=== PATIENT | female | born 1995 | race Caucasian/White ===

== ENCOUNTER 2021-08-27 04:32 | Outpatient (CLI) | payer OTHER, SELFPAY ==
[2021-08-27 06:12] LABS: HIV 1/2 Ab P24 Ag Result Negative (Negative)
[2021-08-27 07:14] LABS: Hepatitis B Surface Antigen Negative (Negative); Hepatitis C Virus Antibody Negative (Negative)
[2021-08-28 13:36] LABS: Hepatitis B Surface Antibody > 1000.00 s/c
[2021-08-28 13:44] LABS: Hepatitis B Surface Anti Res Positive
== END 2021-08-27 04:33 | disposition home or self-care (01) ==
PROVIDERS: PCP Nurse Practitioner
DX: T14.8XXA Other injury of unspecified body region, initial encounter (principal)
CPT/HCPCS: 36415; 86703; 86706; 86803; 87340; G0432

== ENCOUNTER 2024-07-14 10:32 | Outpatient (CLI) | payer OTHER, SELFPAY ==
--- NOTE | ~2024-07-14 | US_ITS ---
Neck ULTRASOUND Ordering provider: Gopal Goldsmith DO History: . R59.0 - Localized enlarged lymph nodes . Comparison: None. FINDINGS/impression: Hypoechoic nodule in the left side of the neck measuring 1.3 x 1 x 0.4 cm most likely lymph node. Com plex cyst is possible. Further evaluation advised. Reviewed, dictated and finalized at location A. SHED CLOTH EXAMINER
[2024-07-14 11:30] LABS: Basophils Absolute Auto 0.03 K/mm3 (0.00-0.10); Basophils Percent Auto 0.3 % (0.0-1.0); Eosinophils Absolute Auto 0.12 K/mm3 (0.02-0.50); Eosinophils Percent Auto 1.3 % (1.0-6.0); Hematocrit 34.6 % (35.0-49.0); Hemoglobin 11.7 g/dL (12.0-15.0); Immature Granulocyte Absolute 0.03 K/mm3 (0.00-0.00); Immature Granulocyte Percent A 0.3 % (0.0-0.0); Lymphocytes Absolute Auto 2.01 K/mm3 (1.10-4.50); Lymphocytes Percent Auto 21.6 % (18.0-42.0); Mean Corpuscular HGB Conc 33.8 g/dL (32-36); Mean Corpuscular Hemoglobin 32.4 pg (27.0-31.0); Mean Corpuscular Volume 95.8 fL (78.0-102.0); Mean Platelet Volume 9.2 fl (9.2-11.8); Monocytes Absolute Auto 0.73 K/mm3 (0.10-0.90); Monocytes Percent Auto 7.8 % (2.0-11.0); Neutrophils Absolute Auto 6.39 K/mm3 (1.70-7.20); Neutrophils Percent Auto 68.7 % (50.0-70.0); Platelet Count Result 308 K/mm3 (150-420); Red Blood Count 3.61 M/mm3 (4.20-5.40); Red Cell Distribution Width 12.3 % (11.6-14.4); White Blood Count 9.3 K/mm3 (4.8-10.8)
[2024-07-14 12:50] LABS: Alanine Aminotransferase 51 U/L (14-59); Albumin Level 3.9 g/dL (3.4-5.0); Alkaline Phosphatase 72 U/L (46-116); Anion Gap 9 mmol/L (4-12); Aspartate Amino Transferase 18 U/L (15-37); Bilirubin,Total 0.3 mg/dL (0.00-1.00); Blood Urea Nitrogen 12 mg/dL (7-18); Calcium 9.4 mg/dL (8.5-10.1); Carbon Dioxide 27 mmol/L (21-32); Chloride 104 mmol/L (98-108); Cholesterol 177 mg/dL (0-200); Estimated Glomerular Filt Rate > 60; Glucose 92 mg/dL (70-99); HDL Direct 43 mg/dL (40-60); LDL Cholesterol Calculated 112 mg/dL (<130); Osmolality Calculated 289 mOsm/kg (285-295); Potassium 4.6 mmol/L (3.5-5.1); Sodium 140 mmol/L (136-145); Thyroid Stimulating Hormone Reflex 1.08 u/IU/mL (0.36-3.74); Total Protein 7.3 g/dL (6.4-8.2); Triglycerides 110 mg/dL (0-150)
== END 2024-07-14 10:33 | disposition home or self-care (01) ==
LOC: CHSIMG 10:33
PROVIDERS: PCP Family Medicine; Visit Provider Family Medicine
DX: Z00.00 Encounter for general adult medical examination without abnormal findings (principal); E03.9 Hypothyroidism, unspecified; R59.0 Localized enlarged lymph nodes; I47.10 Supraventricular tachycardia, unspecified
CPT/HCPCS: 36415; 76536; 80053; 80061; 84443; 85025; 93246

== ENCOUNTER 2024-07-21 08:35 | Outpatient (CLI) | payer OTHER, SELFPAY ==
--- NOTE | ~2024-07-21 | CT_ITS ---
CT soft tissue neck w con Ordering provider: Gopal Goldsmith DO History: 29 years Female with . US 07/14/24, enlarged lymph node - LT side . Comparison: None. Technique: CT soft tissues neck was performed with contrast. . Automated exposure control and iterat sammi reconstruction technique were employed. The dose-length product was 381.47 mGy-cm. 75 mL Omnipaqu e 350 was given IV. Findings: LOWER HEAD: The visualized brain parenchyma, optic globes/orbits and mastoids are normal. The visua lized paranasal sinuses are well aerated. Right maxillary sinus disease. SALIVARY GLANDS: Slightly enlarged submandibular glands measuring 2.4 x 2.4 cm on the right and 2.1 x 2.5 cm in the left. Sialoadenitis is possible. THYROID: Normal. SUPRAHYOID DEEP SPACES: Lymph nodes are seen in the parapharyngeal spaces with the largest on the lef t side measures 0.9 cm. left posterior triangle lymph node is seen which measures 1.5 cm. Posterior triangle lymph nodes are seen in the right measuring 7.7 mm.. The largest lymph node and the right parapharyngeal space measures 0.8 cm. Lymph node is seen posterior to the left submandibular gland measuring 1 cm. CAROTID ARTERIES: Normal. JUGULAR VEINS: Normal. TONSILS: Normal. ORAL CAVITY: normal as visualized. PHARYNX, LARYNX AND TRACHEA: Patent and normal. No prevertebral soft tissue swelling. SUPERFICIAL SOFT TISSUES: Normal. No lymphadenopathy or neck mass. THORACIC INLET/VISUALIZED UPPER CHEST: Normal. SKELETAL: Normal. IMPRESSION: 1. Slightly enlarged submandibular glands. Clinical correlation advised. 2. Borderline lymph nodes seen in the parapharyngeal and posterior triangle areas. 3. Maxillary sinus disease. Reviewed, dictated and finalized at location A. ER BLENDER AND POURER IMPRESSION: 1. Slightly enlarged submandibular glands. Clinical correlation advised. 2. Borderline lymph nodes seen in the parapharyngeal and posterior triangle ar eas. 3. Maxillary sinus disease.
== END 2024-07-21 08:36 | disposition home or self-care (01) ==
PROVIDERS: PCP Family Medicine; Visit Provider Family Medicine
DX: R22.1 Localized swelling, mass and lump, neck (principal)
CPT/HCPCS: 70491; Q9967

== ENCOUNTER 2024-07-30 23:05 | Emergency (ER) | payer OTHER, SELFPAY ==
--- NOTE | ~2024-07-30 | XR_ITS ---
EXAMINATION: XR chest 1V portable Exam Date/Time: 07/30/2024 23:50 FLIGHT OPERATIONS ENGINEER HISTORY: fever, rash Comparison: 04/02/2018. RESULT: Lines, tubes, and devices: None. Lungs and pleura: Clear. Cardiomediastinal silhouette: Stable. Other: No acute osseous or upper abdominal finding. IMPRESSION: No acute cardiopulmonary process. Reviewed, dictated and finalized at location K. HT OPERATIONS ENGINEER
[2024-07-30 23:11] VITALS: BP 116/88; PULSE 126; RESP 14; TEMP 37.3; O2SAT 99
--- NOTE | 2024-07-30 23:17 | ECG_ITS ---
Test Date: 2024-07-30 23:23:15 Measurements Intervals [place] Rate: 134 P: 65 NE: 158 QRS: 56 QRSD: 86 T: 59 QT: 331 QTc: 495 Interpretive Statements SINUS TACHYCARDIA NONSPECIFIC T-WAVE ABNORMALITY ABNORMAL ECG Electronically Signed On 07-31-2024 17:15:27 COATING LINE WORKER by Karri Cooney M.D.
[2024-07-30] MEDS: SODIUM CHLORIDE 0.9% IV 1,000 ML 999 ML IV CONT (23:51)
[2024-07-30] MEDS: FAMOTIDINE 20 MG/2 ML VIAL IV PUSH (23:52)
[2024-07-30] MEDS: methylPREDNISolone SOD SUCC 125 MG VIAL IV PUSH (23:52)
[2024-07-30] MEDS: diphenhydrAMINE HCl INJ 50 MG/ML VIAL 25 MG IV PUSH (23:53)
[2024-07-30 23:54] LABS: Basophils Percent Auto 0.2 % (0.2-1.2); Eosinophils Absolute Auto 0.1 K/mm3 (0-0.3); Eosinophils Percent Auto 1.4 % (0-4.4); Hematocrit 36.7 % (37.0-47.0); Hemoglobin 12.4 g/dL (12.0-15.0); Immature Granulocyte Absolute 0.01 K/mm3 (0.00-0.031); Immature Granulocyte Percent A 0.2 % (0-0.5); Lymphocytes Absolute Auto 0.61 K/mm3 (0.9-3.2); Mean Corpuscular HGB Conc 33.8 g/dl (32-36); Mean Corpuscular Volume 94.8 fl (80-100); Mean Platelet Volume 9.3 fl (7.4-10.4); Monocytes Absolute Auto 0.3 K/mm3 (0.1-0.6); Neutrophils Absolute Auto 3.4 K/mm3 (1.3-6.7); Neutrophils Percent Auto 78.2 % (45.5-73.1); Platelet Count Result 204 k/mm3 (150-375); Red Blood Count 3.87 M/mm3 (4.2-5.4); Red Cell Distribution Width 12.1 % (11.5-14.5); White Blood Count 4.4 K/mm3 (4.5-10.0)
[2024-07-30 23:58] LABS: Add Urine Microscopic? YES; Appearance Urine Clear (Clear); Bacteria Urine None Seen /hpf; Bilirubin Urine Negative (Negative); Blood Urine 1+ (Negative); Color Urine Yellow (Yellow); Glucose Urine UA Negative (Negative); Ketones Urine Negative (Negative); Leukocyte Esterase Ur Negative LEU/UL (Negative); Nitrate Urine Negative (Negative); Non Pathogenic Casts 0-2; Protein Urine Negative (Negative); Specific Grav Ur 1.012 (1.001-1.035); Squamous Epithelial Cell Urine None Seen /hpf (Few); Urobilinogen Urine 0.2 mg/dL (<2.0); WBC Urine 0-5 /hpf (0-3); pH Urine 6.5 (5.0-9.0)
[2024-07-31 00:05] LABS: Lactic Acid Reflex 0.8 mmol/L (0.7-2.0)
[2024-07-31 00:07] LABS: Alanine Aminotransferase 29 U/L (6-35); Albumin Level 4.6 g/dL (3.5-5.1); Alkaline Phosphatase 87 U/L (38-126); Anion Gap 6 mmol/L (4-12); Aspartate Amino Transferase 35 U/L (14-36); Bilirubin,Total 0.4 mg/dL (0.2-1.3); Blood Urea Nitrogen 12 mg/dL (7-17); Calcium 9.5 mg/dL (8.4-10.2); Carbon Dioxide 23 mmol/L (22-30); Chloride 106 mmol/L (98-107); Estimated CRCL calculation 89 ml/min; Estimated Glomerular Filt Rate > 60; Glucose 106 mg/dL (65-110); Potassium 3.9 mmol/L (3.4-5.0); Sodium 135 mmol/L (137-145)
[2024-07-31 00:36] LABS: Influenza A QL RT-PCR Negative (Negative); Influenza B QL RT-PCR Negative (Negative); RSV RNA, RT-PCR Negative (Negative); SARS-CoV-2 RNA PCR Negative (Negative)
[2024-07-31 00:53] VITALS: BP 114/69; PULSE 100; RESP 16; TEMP 37.2; O2SAT 99
--- NOTE | 2024-07-31 01:37 | ED_ITS ---
HPI - General Adult General Chief complaint: Skin/Abscess/Foreign Body Stated complaint: Rash, fever, elevated heart rate Time Seen by Provider: 07/30/24 23:18 History of Present Illness HPI narrative: Patient 29-year-old female presents emergency department with chief complaint of rash. Patient reports that she has history of AV jake reentry tachycardia reports that she has had a fever at home and started developing a rash over her entire body the patient reports that it is blanching reports that it is non itchy the patient reports that she has currently on her 8th day of Bactrim for post exposure prophylaxis to pertusses. Patient reports that she has not had prior reactions to sulfa for the past they had attempted to avoid macrolides as the patient's dysrhythmia history. Related Data Home Medications ?Medication ?Instructions ?Recorded ?Confirmed ?Last Taken ?Type multivitamin 1 tablet PO DAILY 07/09/24 07/09/24 Unknown History omega 3-sdq-dmv-fish oil 60 mg-90 1 cap PO DAILY 07/09/24 07/09/24 Unknown History mg-500 mg capsule (Fish Oil) rimegepant 75 mg disintegrating 75 mg PO ONCE PRN 07/09/24 07/09/24 Unknown History tablet (Nurtec ODT) Allergies Allergy/AdvReac Type Severity Reaction Status Date / Time sulfamethoxazole (From Allergy Intermediate Rash Verified 07/31/24 01:29 Bactrim) trimethoprim (From Bactrim) Allergy Intermediate Rash Verified 07/31/24 01:29 Review of Systems 2 Review of Systems: A 10 system review of systems was completed on the patient and is negative except for what is stated in the HPI. Nursing and ancillary documentation was reviewed. [facility] Past Medical History Medical History (Updated 07/31/24 @ 01:42 by Sedrick Tellez MD) Anxiety disorder, unspecified Depression Migraine with aura, not intractable, without status migrainosus Social History Social History Smoking status: Never smoker Alcohol intake: never Substance use: never Do You Feel Safe in your Home?: Yes Lack of Transportation: No Exam 2 Narrative: GENERAL: Well-appearing, well-nourished, and in no acute distress. HEAD: Normocephalic, atraumatic. EYES: PERRLA and EOMI. ENT: Nares clear, no rhinorrhea or epistaxis. Mucous membranes moist. NECK: Supple. CHEST: Clear to auscultation. No respiratory distress. HEART: Regular rate and rhythm. No murmur heard. Normal peripheral pulses. ABDOMEN: Soft, nontender, nondistended, normal active bowel sounds. EXTREMITIES: Normal range of motion. No edema. SKIN: Warm, dry, non raised blanching rash no mucosal involvement no vesicular lesions. NEURO: No focal deficits. Alert and oriented x3. PSYCH: Normal mood and affect. Course Vital Signs Vital signs: Vital Signs Temperature 37.3 C 07/30/24 23:11 Pulse Rate 126 H 07/30/24 23:11 Respiratory Rate 14 07/30/24 23:11 Blood Pressure 116/88 07/30/24 23:11 Pulse Oximetry 99 07/30/24 23:11 Temperature 37.2 C 07/31/24 00:53 Pulse Rate 100 07/31/24 00:53 Respiratory Rate 16 07/31/24 00:53 Blood Pressure 114/69 07/31/24 00:53 Pulse Oximetry 99 07/31/24 00:53 Medical Decision Making [facility] Narrative Medical decision making narrative: Differential diagnosis includes drug reaction, Hughes-Matthew, toxic epidermal necrolysis Laboratory studies were obtained on the patient showed normal CBC with a white count of 4.4 electrolytes showed normal renal function with a creatinine of 0.6 and a BUN of 12 lactic acid was normal urinalysis showed no evidence UTI COVID flu and RSV were negative Chest x-ray showed no focal infiltrate Patient was given steroids Benadryl and Pepcid and is feeling better at this time. The patient will be continued on a pulse of steroids and also was instructed to use Benadryl and Pepcid on an as-needed basis. Given the patient has completed 8 days of the Bactrim the Bactrim will be discontinued and the patient should follow up with him fully health. Vital Signs Vital Signs: Vital Signs Temperature 37.3 C 07/30/24 23:11 Pulse Rate 126 H 07/30/24 23:11 Respiratory Rate 14 07/30/24 23:11 Blood Pressure 116/88 07/30/24 23:11 Pulse Oximetry 99 07/30/24 23:11 Temperature 37.2 C 12/27/24 00:53 Pulse Rate 100 07/31/24 00:53 Respiratory Rate 16 07/31/24 00:53 Blood Pressure 114/69 07/31/24 00:53 Pulse Oximetry 99 07/31/24 00:53 Lab Data 07/30/24 23:44 07/30/24 23:44 Labs: Lab Results 07/30/24 07/30/24 Range/Units 23:44 23:45 WBC 4.4 L (4.5-10.0) K/mm3 RBC 3.87 L (4.2-5.4) M/mm3 Hgb 12.4 (12.0-15.0) g/dL Hct 36.7 L (37.0-47.0) % MCV 94.8 (80-100) fl MCH 32.0 (26-34) pg MCHC 33.8 (32-36) g/dl RDW 12.1 (11.5-14.5) % Plt Count 204 (150-375) k/mm3 MPV 9.3 (7.4-10.4) fl Immature Gran % (Auto) 0.2 (0-0.5) % Neut % (Auto) 78.2 H (45.5-73.1) % Lymph % (Auto) 14.0 L (18.3-44.2) % [place] % (Auto) 6.0 (2.6-8.5) % Eos % (Auto) 1.4 (0-4.4) % Baso % (Auto) 0.2 (0.2-1.2) % Lymph # (Auto) 0.61 L (0.9-3.2) K/mm3 [place] # (Auto) 0.3 (0.1-0.6) K/mm3 Eos # (Auto) 0.1 (0-0.3) K/mm3 Baso # (Auto) 0.0 (0.0-0.1) K/mm3 Abs Immat Gran (auto) 0.01 (0.00-0.031) K/mm3 Absolute Neuts (auto) 3.4 (1.3-6.7) K/mm3 Absolute Nucleated RBC 0.000 (0.0-0.012) K/mm3 Nucleated RBC % 0.0 (0.0-0.2) % Sodium 135 L (137-145) mmol/L Potassium 3.9 (3.4-5.0) mmol/L Chloride 106 (98-107) mmol/L Carbon Dioxide 23 (22-30) mmol/L Anion Gap 6 (4-12) mmol/L BUN 12 (7-17) mg/dL Creatinine 0.60 L (0.7-1.0) mg/dL Estim Creat Clear Calc 89 ml/min Estimated GFR > 60 (59 - ) Glucose 106 (65-110) mg/dL Lactic Acid 0.8 (0.7-2.0) mmol/L Calcium 9.5 (8.4-10.2) mg/dL Total Bilirubin 0.4 (0.2-1.3) mg/dL AST 35 (14-36) U/L ALT 29 (6-35) U/L Alkaline Phosphatase 87 (38-126) U/L Total Protein 8.0 (6.3-8.2) g/dL Albumin 4.6 (3.5-5.1) g/dL Urine Color Yellow (Yellow) Urine Appearance Clear (Clear) Urine pH 6.5 (5.0-9.0) Ur Specific [place] 1.012 (1.001-1.035) Urine Protein Negative (Negative) mg/dL Urine Glucose (UA) Negative (Negative) mg/dL Urine Ketones Negative (Negative) mg/dL Ur Blood (Man) 1+ H (Negative) Urine Nitrate Negative (Negative) Urine Bilirubin Negative (Negative) Urine Urobilinogen 0.2 (<2.0) mg/dL Leukocyte Esterase Rfl Negative (Negative) DONNELL/UL Urine RBC 6-10 H (0-2) /hpf Urine WBC 0-5 (0-3) /hpf Ur Squamous Epith Cells None seen (Few) /hpf Urine Bacteria None seen /hpf Urine Casts 0-2 Influenza A (RT-PCR) Negative (Negative) Influenza B (RT-PCR) Negative (Negative) RSV (RT-PCR) Negative (Negative) SARS-CoV-2 RNA (RT-PCR) Negative (Negative) Discharge Plan Discharge Clinical Impression: Allergic reaction Patient Disposition: Home, Self-Care Condition: Stable Instructions: Antibiotic Form, Antibiotic Medication Allergy (ED) Patient Language: Spanish Prescriptions: New prednisone 20 mg tablet 40 mg PO DAILY 5 Days Qty: 10 0RF No Action omega 6-zia-qgk-fish oil [Fish Oil] 60-90-500 mg capsule 1 cap PO DAILY multivitamin Tablet 1 tablet PO DAILY Nurtec ODT 75 mg tablet,disintegrating 75 mg PO ONCE PRN Rx Instructions: as a single dose triamcinolone acetonide 0.5 % cream 1 applic topical BID Qty: 15 0RF Follow-up/Referrals: Gopal Goldsmith DO [Primary Care Provider] - Time of Disposition: 01:43
== END 2024-07-31 01:48 | disposition home or self-care (01) ==
PROVIDERS: Emergency Provider Emergency Medicine; PCP Family Medicine
DX: T78.40XA Allergy, unspecified, initial encounter (principal); F41.9 Anxiety disorder, unspecified; F32.A Depression, unspecified; Z20.822 Contact with and (suspected) exposure to COVID-19
CPT/HCPCS: 36415; 71045; 80053; 81001; 83605; 85025; 87637; 93005; 96361; 96374; 96375; 99284; J1200; J2919; J7030

== ENCOUNTER 2025-06-12 07:32 | Outpatient (CLI) | payer OTHER, SELFPAY ==
--- NOTE | 2025-06-12 07:50 | PC.NURSE ---
Pt arrived with c/o having noticed a small trickle of fluid across her thigh around 0315 while at work last night. Also, has felt a decrease in movement. Pt also states she has felt some lower abdominal cramping last night 1-2 times per hour.
[2025-06-12 07:58] VITALS: BP 105/62; PULSE 86
[2025-06-12 08:00] VITALS: BP 104/69; PULSE 91; RESP 16; TEMP 36.7
--- NOTE | 2025-06-12 08:01 | PM.OBTRLD ---
OB - Triage/Final Diagnosis Visit Information Date of evaluation: 06/12/25 Reason for evaluation: threatened labor Comments/Additional reasons for admission: I have assessed the risk for this patient, Sadia Henry, and determined that she would benefit from observation care. Evaluation Vital signs: Vital Signs - 24 hr 06/12/25 07:58 06/12/25 08:00 Pulse Rate 86 91 Blood Pressure 105/62 104/69
[2025-06-12 08:17] VITALS: BP 104/69; PULSE 91
--- NOTE | 2025-06-12 08:18 | PC.NURSE ---
Dr. Melba Hernadez on unit and informed of pt's c/o possible leakage of fluid, decreased movement and 1-2 cxns/hr while at work last night. Pt states she had 2 eight oz glasses of water at the most while she was working last night. ROM plus was negative, reviewed monitor tracing with 10 beat accels and 1 variable decel down to 115. Pt denies feeling any abdominal pain / cramping since being here. OK to discharge to home.
[2025-06-12 09:01] LABS: OBXCEM ROM Plus Negative (Negative)
== END 2025-06-12 08:25 | disposition home or self-care (01) ==
LOC: ANHOBOP 07:39 → ANHOBPP 07:40
PROVIDERS: PCP Family Medicine; Visit Provider Obstetrics & Gynecology
DX: O42.90 Premature rupture of membranes, unspecified as to length of time between rupture and onset of labor, unspecified weeks of gestation (principal); Z3A.00 Weeks of gestation of pregnancy not specified
CPT/HCPCS: 59025; 84112; 99199

== ENCOUNTER 2025-06-15 09:12 | Outpatient (CLI) | payer OTHER, SELFPAY ==
[2025-06-15 09:31] LABS: Add Urine Microscopic? YES; Appearance Urine Clear (Clear); Glucose Urine UA Negative (Negative); Leukocyte Esterase Ur Trace (Negative); Nitrate Urine Negative (Negative); Specific Grav Ur >= 1.030 (1.010-1.020)
[2025-06-15 09:32] LABS: Hematocrit 31.4 % (35.0-49.0); Hemoglobin 10.5 g/dL (12.0-15.0); Immature Granulocyte Percent A 1.0 % (0.0-0.0); Lymphocytes Absolute Auto 1.96 K/mm3 (1.10-4.50); Mean Corpuscular HGB Conc 33.4 g/dL (32-36); Mean Corpuscular Hemoglobin 33.0 pg (27.0-31.0); Mean Corpuscular Volume 98.7 fL (78.0-102.0); Nucleated Red Blood Cells Absolute Auto 0.00 K/mm3 (0.00-0.00); Nucleated Red Blood Cells Perc 0.0 % (0-0.0); Platelet Count Result 314 K/mm3 (150-420); Red Blood Count 3.18 M/mm3 (4.20-5.40); White Blood Count 8.9 K/mm3 (4.8-10.8)
[2025-06-15 10:14] LABS: Alanine Aminotransferase 48 U/L (6-35); Albumin Level 3.9 g/dL (3.5-5.1); Alkaline Phosphatase 75 U/L (38-126); Anion Gap 9 mmol/L (4-12); Aspartate Amino Transferase 39 U/L (14-36); Bilirubin,Total 1.2 mg/dL (0.2-1.3); Blood Urea Nitrogen 6 mg/dL (7-17); Calcium 9.2 mg/dL (8.4-10.2); Carbon Dioxide 20 mmol/L (22-30); Chloride 109 mmol/L (98-107); Estimated Glomerular Filt Rate > 60; Glucose 136 mg/dL (65-110); Osmolality Calculated 285 mOsm/kg (285-295); Potassium 3.9 mmol/L (3.4-5.0); Sodium 138 mmol/L (137-145); Total Protein 6.7 g/dL (6.3-8.2)
[2025-06-15 10:46] LABS: Thyroid Stimulating Hormone Reflex 0.804 uIU/mL (0.465-4.68)
[2025-06-15 11:21] LABS: Vitamin B12 520.0 pg/mL (239-931)
[2025-06-15 16:13] LABS: Ferritin 10.10 ng/mL (6.24-137)
[2025-06-15 16:32] LABS: Iron 128 ug/dL (37-170)
[2025-06-15 16:41] LABS: Percent Iron Saturation 28 % (20-50)
[2025-06-16 09:37] LABS: Hepatitis B Surface Antigen Negative (Negative)
[2025-06-16 09:44] LABS: HAV RESULT Negative (Negative); Hepatitis B Core IgM Result Negative (Negative)
== END 2025-06-15 09:13 | disposition home or self-care (01) ==
LOC: CHSLAB 09:12
PROVIDERS: PCP Family Medicine; Visit Provider Family Medicine
DX: I47.19 Other supraventricular tachycardia (principal); E53.8 Deficiency of other specified B group vitamins; E03.9 Hypothyroidism, unspecified; R74.01 Elevation of levels of liver transaminase levels; D50.9 Iron deficiency anemia, unspecified; D64.9 Anemia, unspecified
CPT/HCPCS: 36415; 80053; 80074; 81001; 82607; 82728; 82746; 83540; 83550; 84443; 85025

== ENCOUNTER 2025-06-23 08:39 | Outpatient (CLI) | payer OTHER, SELFPAY ==
--- NOTE | ~2025-06-23 | US_ITS ---
EXAMINATION: US abdomen limited DATE: 06/23/2025 09:01 INDICATION: Abnormal test TECHNIQUE: Multiple grayscale and Doppler ultrasound images of the liver were obtained. COMPARISON: None FINDINGS: Visualized portions of liver appear normal. Vascular structures appear patent. The gallbladder appears normal no gross gallbladder wall thickening, pericholecystic fluid or gallstones. Common bile duct: 3.7 mm. Hepatopedal portal venous flow noted. No free fluid seen. IMPRESSION: Directed examination of the liver with no gross abnormality identified. No cholelithiasis or gross sonographic evidence of acute cholecystitis. Reviewed, dictated and finalized at location A. AL DOCTOR IMPRESSION: Directed examination of the liver with no gross abnormality identif ied. No cholelithiasis or gross sonographic evidence of acute cholecystitis.
== END 2025-06-23 08:40 | disposition home or self-care (01) ==
LOC: CHSIMG 08:39
PROVIDERS: PCP Family Medicine; Visit Provider Family Medicine
DX: R74.01 Elevation of levels of liver transaminase levels (principal)
CPT/HCPCS: 76705